=== PATIENT | male | born 1950 | race Caucasian/White ===

== ENCOUNTER 2025-02-13 22:00 | Inpatient (IN) | payer OTHER ==
--- OUTSIDE RECORDS SUMMARY | 2025-02-13 22:04 | XMS REPORT | Continuity of Care Document ---
Author Name Unknown Address [address] [facility]. [address] [place] [address] Organization [facility] [place] Address [address] [facility]. [address] [place] [address] Care Team Providers Care Facilities Maintenance Supervisor Name Role Phone Pcp, Patient Does Not Have A Primary Care Physic zane Jesse Damon Attending Clinician [phone] PHANI ARORA Attending Clinician Unavailable King WALLY, Santi Manriquez Attending Clinician [phone] Dylan Richardson MD Attending Clinician [phone] Jhon Lynn MD Attending Clinician [phone] Payers Payer Name Policy Type Policy Number Effective Date Expirati on Date Source Problems Condition Name Condition Details Condition Category Status Onset Date Resolution Date Last Treatment Date Treating Clinician Comments Source Essential hypertensi on, benign Essential hypertensi on, benign Disease Active 10-15 00:00: 00 [facility] Venous insufficie ncy Venous insufficie ncy Disease Active 2016-05 00:00: 00 [facility] Obesity, Class III, BMI 40-49.9 (morbid obesity) Obesity, Class III, BMI 40-49.9 (morbid obesity) Disease Active 2016-05 00:00: 00 [facility] Venous insufficie ncy Venous insufficie ncy Disease Active 2016-05 00:00: 00 [facility] Obesity, Class III, BMI 40-49.9 (morbid obesity) Obesity, Class III, BMI 40-49.9 (morbid obesity) Disease Active 2016-05 00:00: 00 [facility] Pedal edema Pedal edema Disease Active 2016-05 00:00: 00 [facility] Primary osteoarthr itis of both knees Primary osteoarthr itis of both knees Disease Active 02-19 00:00: 00 [facility] Chronic idiopathic gout of foot, unspecifie d laterality Chronic idiopathic gout of foot, unspecifie d laterality Disease Active 02-19 00:00: 00 [facility] Allergies, Adverse Reactions, Alerts Allergy Name Allergy Type Status Severity Reaction(s) Onset Date Inactive Date Treating Clinician Comments Source Penicill ins Propensi ty to adverse reaction s to drug Active Unknown - See comments 02-19 00:00: 00 [facility] PENICILL INS Drug Class Active High Unknown-Cmnt 02-19 00:00: 00 [facility] Social History Social Habit Start Date Stop Date Quantity Comments Source Tobacco use and exposure 2017-03-03 00:00:00 2017-03-03 00:00:00 Never used [facility] Sex Assigned At 1950 00:00:00 1950 00:00:00 [facility] Smoking Status Start Date Stop Date Source Never smoker [facility] Medications Ordered Medication Name Filled Medication Name Start Date Stop Date Current Medication? Ordering Clinician Indication Dosage Frequency Signature (SIG) Comments Components Source DICLOFENAC 75 mg EC tablet 2020-05 00:00: 00 Yes TAKE 1 TABLET BY MOUTH TWICE DAILY WITH MEALS [facility] DICLOFENAC 75 mg EC tablet 02-03 00:00: 00 Yes [id number] TAKE 1 TABLET BY MOUTH TWICE DAILY WITH MEALS [facility] DICLOFENAC 75 mg EC tablet 12-05 00:00: 00 02-03 00:00 :00 No [id number] TAKE 1 TABLET BY MOUTH TWICE DAILY WITH MEALS [facility] DICLOFENAC 75 mg EC tablet 10-14 00:00: 00 Yes TAKE 1 TABLET BY MOUTH TWICE DAILY WITH MEALS [facility] DICLOFENAC 75 mg EC tablet 08-20 00:00: 00 Yes TAKE 1 TABLET BY MOUTH TWICE DAILY WITH MEALS [facility] DICLOFENAC 75 mg EC tablet 07-24 00:00: 08-20 00:00 :00 No [id number] TAKE 1 TABLET BY MOUTH TWICE DAILY WITH MEALS [facility] DICLOFENAC 75 mg EC tablet 06-19 00:00: 00 07-24 00:00 :00 No TAKE 1 TABLET BY MOUTH TWICE DAILY WITH MEALS [facility] DICLOFENAC 75 mg EC tablet 2018-05 00:00: 00 06-19 00:00 :00 No TAKE 1 TABLET BY MOUTH TWICE DAILY WITH MEALS [facility] LISINOPRIL- HYDROCHLORO THIAZIDE 20-25 mg per tablet 2018-05 00:00: 00 Yes [id number] 1{tbl} TAKE 1 TABLET BY MOUTH DAILY [facility] DICLOFENAC 75 mg EC tablet 01-18 00:00: 00 Yes TAKE 1 TABLET BY MOUTH TWICE DAILY WITH MEALS [facility] DICLOFENAC 75 mg EC tablet 12-19 00:00: 00 Yes TAKE 1 TABLET BY MOUTH TWICE DAILY WITH MEALS [facility] DICLOFENAC 75 mg EC tablet 11-18 00:00: 00 12-18 00:00 :00 No [id number] TAKE 1 TABLET BY MOUTH TWICE DAILY WITH MEALS [facility] DICLOFENAC 75 mg EC tablet 09-22 00:00: 00 Yes TAKE 1 TABLET BY MOUTH TWICE DAILY WITH MEALS [facility] allopurinol 100 mg tablet 08-12 00:00: 00 Yes [id number] 100mg Take 1 tablet by mouth daily. [facility] acetaminoph en (TYLENOL ORAL) 2017-05 14:53: 56 Yes Take by mouth. [facility] acetaminoph en (TYLENOL ORAL) 2017-05 08:53: 56 Yes Take by mouth. [facility] lisinopril- hydrochloro thiazide 20-25 mg per tablet 2017-05 00:00: 00 Yes 1{tbl} Take 1 tablet by mouth daily. [facility] DICLOFENAC 75 mg EC tablet 2017-05 00:00: 00 Yes TAKE 1 TABLET BY MOUTH TWICE DAILY WITH MEALS [facility] DICLOFENAC 75 mg EC tablet 2017-05 00:00: 00 Yes TAKE 1 TABLET BY MOUTH TWICE DAILY WITH MEALS [facility] Docosanol (ABREVA) 10 % Crea 01-21 00:00: 00 Yes [id number] Apply to area(s) 5 (five) times daily. [facility] DICLOFENAC 75 mg EC tablet 11-15 00:00: 00 Yes TAKE 1 TABLET BY MOUTH TWICE DAILY WITH MEALS [facility] Encounters Start Date/Time End Date/Time Encounter Type Admission Type Attending [facility] Care Facility Care Department Encounter ID Source 2021-04-03 00:00:00 2021-04-03 00:00:00 [facility] 1.2.840.114 350.1.13.10 4.2.7.2.[id number] [facility] 2021-01-31 00:00:00 2021-01-31 [facility] 1.2.840.114 350.1.13.10 4.2.7.2.[id number] [facility] 2020-12-05 00:00:00 2020-12-05 00:00[facility] 1.2.840.114 350.1.13.10 4.2.7.2.[id number] [facility] 2020-10-13 00:00:00 2020-10-13 00:00:00 Ant Starkey [facility] Surgical Special chan [place] 1.2.840.114 350.1.13.10 4.2.7.2.[id number] [facility] 2020-08-19 00:00:00 2020-08-19 00:00:00 Refkiana Starkey [facility] Surgical Special [facility] [place] 1.2.840.114 350.1.13.10 4.2.7.2.686 [id number] 2020-08-19 00:00:00 2020-08-19 00:00:00 Refkiana Starkey [facility] 1.2.840.114 350.1.13.10 4.2.7.2.[id number] [facility] 2019-12-02 18:45:00 2019-12-02 18:45:00 Outpatient PHANI SANCHEZ [facility] [id number] [facility] 2019-08-22 00:00:00 2019-08-22 00:00:00 Santi Florence [facility] 1.2.840.114 350.1.13.10 4.2.7.2.686 [id number] 2019-08-22 00:00:00 2019-08-22 00:00:00 Santi Florence [facility] 1.2.840.114 350.1.13.10 4.2.7.2.[id number] [facility] 2019-07-25 00:00:00 2019-07-25 00:00:00 Ant Starkey [facility] [place] 1.2.840.114 350.1.13.10 4.2.7.2.686 [id number] 2019-07-25 00:00:00 2019-07-25 00:00:00 Refill Jesse Starkey [facility] [place] 1.2.840.114 350.1.13.10 4.2.7.2.[id number] [facility] 2019-07-23 00:00:00 2019-07-23 00:00:00 RefDylan Manley [facility] 1.2.840.114 350.1.13.10 4.2.7.2.686 [id number] 2019-07-23 00:00:00 2019-07-23 00:00:00 Refill Jesse Stareky [facility] [place] 1.2.840.114 350.1.13.10 4.2.7.2.686 [id number] 2019-07-23 00:00:00 2019-07-23 00:00:00 Refill Debra [facility] 1.2.840.114 350.1.13.10 4.2.7.2.[id number] [facility] 2019-07-23 00:00:00 2019-07-23 00:00:00 Jesse Antunez [facility] [place] 1.2.840.114 350.1.13.10 4.2.7.2.[id number] [facility] 2019-06-16 00:00:00 2019-06-16 00:00:00 Jhon Manley Shraddha [facility] [place] 1.2.840.114 350.1.13.10 4.2.7.2.686 [id number] 2019-06-16 00:00:00 2019-06-16 00:00:00 Jhon Manley [facility] [place] 1.2.840.114 350.1.13.10 4.2.7.2.[id number] [facility] 2019-01-17 00:00:00 2019-01-17 00:00:00 Ant Starkey [facility] [place] 1.2.840.114 350.1.13.10 4.2.7.2.[id number] [facility] 2019-01-17 00:00:00 2019-01-17 00:00:00 Ant Starkey [facility] [place] 1.2.840.114 350.1.13.10 4.2.7.2.686 [id number] 2018-12-18 00:00:00 2018-12-18 00:00:00 Ant Starkey [facility] [place] 1.2.840.114 350.1.13.10 4.2.7.2.[id number] [facility] 2018-12-18 00:00:00 2018-12-18 00:00:00 Ant Starkey [facility] [place] 1.2.840.114 350.1.13.10 4.2.7.2.686 [id number]
[2025-02-13] MEDS ORDERED: ACETAMINOPHEN 500 MG TAB ONE (22:54)
[2025-02-13] MEDS ORDERED: IBUPROFEN 400 MG TAB ONE (22:54)
[2025-02-13] MEDS ORDERED: NA CHLORIDE 0.9% 1,000 ML ONE (22:55)
[2025-02-13 23:18] LABS: Absolute Lymphocytes (CBC) 0.3 K/uL (0.7-4.9); Hematocrit 41.6 % (39.6-49.0); Hemoglobin 14.1 g/dL (13.6-17.9); MCH 29.6 pg (27.0-35.0); MCHC 33.8 g/dL (32.0-36.0); MCV 87.6 fL (80-100); MPV 8.8 fL (7.6-11.3); Nucleated RBC Absolute Count 0.0 (0-0); Nucleated Red Blood Cells % 0.3 % (0-0); RBC Red Blood Cell Count 4.75 M/uL (4.33-5.43); White Blood Count 11.60 thou/uL (4.3-10.9)
[2025-02-13 23:19] LABS: PT Prothrombin Time 14.1 SECONDS (10-13.0); PTT, Activated Partial Thromb 27.7 SECONDS (27.2-37.4); Protime INR 1.26
[2025-02-13 23:33] LABS: Sqamous Epithelial None Seen /HPF (None Seen); Urine Culture Reflex Order NOT NEEDED; Urine Microscopic Reflex YN ORDER UMIC
[2025-02-13 23:34] LABS: ALT/SGPT 25.0 U/L (16-61); AST/SGOT 22.0 U/L (15-37); Albumin 3.3 g/dL (3.4-5.0); Albumin/Globulin Ratio 0.8 (1.1-1.8); Alkaline Phosphatase 67.0 U/L (45-117); Anion Gap 11.0 mEq/L (5.0-15.0); BUN Blood Urea Nitrogen 23.0 mg/dL (7-18); Globulin 4.2 g/dL (2.3-3.5); Glucose Level 125.0 mg/dL (74-106); NT PRO-BNP 202.0 pg/mL (<125); Potassium 4.0 mEq/L (3.5-5.1)
[2025-02-13 23:34] LABS: Influenza A Ag Negative; Influenza B Ag Negative; SARS-CoV-2 Antigen Rapid Res Negative (Negative)
[2025-02-13 23:38] LABS: Troponin High Sensitivity 64.9 pg/mL (<58.9)
[2025-02-14 00:14] LABS: Blood Morphology Comment NOT SEEN (NOT SEEN); Differential Total Cells Count 100; Segmented Neutrophils 73 % (40-80); Toxic Granulation 1+
--- NOTE | 2025-02-14 00:26 | EDPHYS ---
Physician Documentation [facility] Name: Kevin Salgado Age: 74 yrs Sex: Male : 1950 Arrival Date: 02/13/2025 Time: 22:00 Bed 14 Private MD: ED Physician Manish Camarena HPI: 02/13 22:24 This 74 yrs old Male presents to ER via Ambulatory with complaints of Fever, dr5 Weakness, Leg Pain, Feet Swelling, Congestion. 22:24 Onset: The symptoms/episode began/occurred 2 day(s) ago. Patient is a 74-year-old male dr5 with history of hypertension, enlarged prostate coming in with fever, shortness of breath when ambulating for the past 2 days. Patient denies chest pain, abdominal pain, constipation. Patient reports he started having diarrhea yesterday. Patient reports that he has a pulse ox at home and his oxygen saturation was in the 80s yesterday. Patient reports productive cough with green, yellow sputum.. Historical: - Allergies: 22:26 PENICILLINS; vc1 - Home Meds: 22:26 allopurinol 100 mg Oral tablet daily [Active]; vc1 22:28 lisinopril-hydrochlorothiazide oral [Active]; tramadol 50 mg Oral tablet [Active]; vc1 Flomax 0.4 mg Oral capsule [Active]; acetaminophen 500 mg Oral capsule 2 2-4 cap daily [Active]; magnesium oxide 500 mg Oral capsule [Active]; Vitamin D Oral daily [Active]; biotin 10,000 mcg oral capsule [Active]; - PMHx: 22:26 Neuropathy; right foot drop; vc1 - PSHx: 22:26 None; vc1 - Immunization history:: Adult Immunizations unknown. - Infectious Disease History:: Denies. - Social history:: Smoking status: Patient denies any tobacco usage or history of. ROS: 22:24 Constitutional: as per hpi dr5 Exam: 22:24 Constitutional: This is a well developed, well nourished patient who is awake, alert, dr5 and in no acute distress. Head/Face: Normocephalic, atraumatic. Eyes: Pupils equal round and reactive to light, extra-ocular motions intact. Lids and lashes normal. Conjunctiva and sclera are non-icteric and not injected. Cornea within normal limits. Periorbital areas with no swelling, redness, or edema. Neck: Trachea midline, no thyromegaly or masses palpated, and no cervical lymphadenopathy. Supple, full range of motion without nuchal rigidity, or vertebral point tenderness. No Meningismus. Chest/axilla: Normal chest wall appearance and motion. Nontender with no deformity. No lesions are appreciated. Cardiovascular: Regular rate and rhythm with a normal S1 and S2. Normal PMI, no JVD. No pulse deficits. 2+ bilateral pitting edema noted Respiratory: Lungs have equal breath sounds bilaterally, clear to auscultation. No rales, rhonchi or wheezes noted. Mild increased work of breathing, no retractions or nasal flaring. Abdomen/GI: Soft, non-tender, non-distended Back: No spinal tenderness. No costovertebral tenderness. Full range of motion. Skin: Warm, dry with normal turgor. Normal color with no rashes, no lesions, and no evidence of cellulitis. Patient has bilateral lower extremity swelling with mild redness noted to left lower extremity. MS/ Extremity: Pulses equal, no cyanosis. Neurovascular intact. Full, normal range of motion. Neuro: Awake and alert, GCS 15, oriented to person, place, time, and situation. Cranial nerves II-XII grossly intact. Motor strength 5/5 in all extremities. Sensory grossly intact. Cerebellar exam normal. Normal gait. 02/14 01:45 Skin: Patient has bilateral ulcerations to bottom of feet. No tenderness to palpation. dr5 No discharge from wounds.. Vital Signs: 02/13 22:20 BP 141 / 75; Pulse 123; Resp 28; Temp 99.8; Pulse Ox 93% ; Weight 154.22 kg; Height 6 vc1 ft. 0 in. ; 23:21 BP 124 / 54; Pulse 100; Resp 20; Pulse Ox 97% on 2 lpm NC; kj2 22:20 Body Mass Index 46.11 (154.22 kg, 182.88 cm) vc1 MDM: 22:05 Medical Screening Exam initiated dr5 02/14 00:26 Differential diagnosis: viral Infection, bacterial infection, URI, pneumonia CHF dr5 exacerbation, COVID, Flu, UTI. Data reviewed: vital signs, nurses notes, lab test result(s), CBC, white blood cell count, hemoglobin, hematocrit, platelets, electrolytes, sodium, potassium, chloride, serum bicarbonate, BUN, creatinine, serum glucose, Flu: negative urinalysis, COVID negative, EKG, radiologic studies, CT scan, plain films. Consideration of Admission/Observation Patient was admitted/placed on observation. Management of patient was discussed with the following: Hospitalist: Dr. Jason. I considered the following discharge prescriptions or medication management in the emergency department I discussed and recommended Over The Counter medications, Medications were administered in the Emergency Department. See MAR. Independent interpretation of the following test(s) in the Emergency Department X-Ray: My interpretation is independent interpretation of x-ray reveals vascular congestion. Historians other than the Patient: Spouse/Significant Other: . Care significantly affected by the following chronic conditions: Neuropathy. Care significantly affected by the following Social Determinants of Health: Poor access to healthcare and/or lack of insurance, Poor access to transportation, Problems related to employment. 00:29 Scoring Tools HEART Score: History: ECG: Age: Risk Factors: 1 or 2 risk factors (1), dr5 Troponin: Total Score = 4 PERC Rule for PE Age >/= 50 Yes HR >/= 100 Yes O2 Sat Room Air < 95% Yes Unilateral leg swelling No Hemoptysis No Recent surgery or trauma </= 4 wks ago requiring treatment with general anesthesia No (0 pt) Prior PE or DVT No Hormone use (Oral contraceptives, hormone replacement or estrogenic hormones use in males or female patients No. Counseling: I had a detailed discussion with the patient and/or guardian regarding the historical points, exam findings, and any diagnostic results supporting the discharge/admit diagnosis, the presence of at least one elevated blood pressure reading (>120/80) during this emergency department visit, lab results, radiology results, the need for further work-up and treatment in the hospital. Medication response: Response to treatment: the patient's symptoms have markedly improved after treatment. Special discussion:. ED course: Discussed need for admission and patient and agree. Patient reports he is feeling much better after fluids and ibuprofen and Tylenol.. 02/13 22: Order name: BNP; Complete Time: 23:39 dr5 02/13 22:23 Order name: Blood Culture Adult (2) dr5 02/13 22:23 Order name: CBC with Diff; Complete Time: 00:15 dr5 02/13 22:23 Order name: CMP; Complete Time: 23:39 dr5 02/13 22:23 Order name: Lactate w/ 2H reflex if indic.; Complete Time: 23:33 [facility] 02/13 22:23 Order name: Protime (+inr); Complete Time: 23:21 [facility] 02/13 22:23 Order name: Ptt, Activated; Complete Time: 23:21 [facility] 02/13 22:23 Order name: Troponin HS; Complete Time: 23:39 [facility] 02/13 22:23 Order name: COVID-19 Ag + Flu A+B Ag; Complete Time: 23:34 [facility] 02/13 22:26 Order name: UA Rfx Arley Cult if indicated; Complete Time: 23:33 [facility] 02/13 23:25 Order name: Glucose, Ancillary Testing; Complete Time: 23:26 EDMS 02/13 23:28 Order name: Manual Differential; Complete Time: 00:15 EDMS 02/14 03:28 Order name: CBC with Automated Diff EDMS 02/14 03:28 Order name: CBC with Automated Diff EDMS 02/14 03:28 Order name: Comprehensive Metabolic Panel EDMS 02/14 03:28 Order name: Comprehensive Metabolic Panel EDMS 02/14 03:28 Order name: Troponin High Sensitivity EDMS 02/14 03:28 Order name: Troponin High Sensitivity; Complete Time: 06:18 EDMS 02/14 03:28 Order name: Troponin High Sensitivity EDMS 02/14 03:28 Order name: Troponin High Sensitivity EDMS 02/14 04:14 Order name: Lactate w/ 2H reflex if indic. vc1 02/14 04:51 Order name: Lactate w/ 2H reflex if indic.; Complete Time: 06:18 EDMS 02/14 11:46 Order name: CBC with Automated Diff EDMS 02/14 12:00 Order name: Basic Metabolic Panel EDMS 02/14 12:00 Order name: Phosphorus EDMS 02/14 12:00 Order name: Magnesium EDMS 02/13 22:23 Order name: Chest Single View XRAY [facility] 02/14 00:22 Order name: CT Chest For PE Angio [facility] 02/13 22:23 Order name: Accucheck; Complete Time: 23:01 [facility] 02/13 22:23 Order name: Cardiac monitoring; Complete Time: 22:49 [facility] 02/13 22:23 Order name: EKG - Nurse/Tech; Complete Time: 23:01 [facility] 02/13 22:23 Order name: IV Saline Lock - Large Bore; Complete Time: 22:49 dr5 02/13 22:23 Order name: Labs collected and sent; Complete Time: :49 dr5 02/13 22: Order name: O2 Per Protocol; Complete Time: :49 dr5 02/13 22: Order name: O2 Sat Monitoring; Complete Time: 22:49 dr5 02/13 22:23 Order name: Vital Signs; Complete Time: 22:50 dr5 EC/23 23:01 Rate is 114 beats/min. Rhythm is regular. QRS [place] is Normal. SC interval is normal at dr5 208 msec. QRS interval is normal at 80 msec. QT interval is normal at 288 msec. Clinical impression: Sinus tachycardia. Administered Medications: 23: Drug: NS 0.9% IV 1000 ml IV at 1000 ml once; to be given as a bolus over 60 minutes cp4 Route: IV; Rate: 1000 ml; Site: right antecubital; 02/14 00:41 Follow up: Response: No adverse reaction cp4 00:42 Follow up: IV Status: Completed infusion cp4 02/13 23:01 Drug: Acetaminophen PO 1000 mg PO once Route: PO; cp4 02/14 00:42 Follow up: Response: No adverse reaction; Pain is decreased cp4 02/13 23:01 Drug: Ibuprofen PO 800 mg PO once Route: PO; cp4 02/14 00:42 Follow up: Response: No adverse reaction; Pain is decreased cp4 00:41 Drug: Rocephin IV 2 grams IV at per protocol once; Given slow IV push per pharmarcy cp4 instructions Route: IV; Rate: per protocol; Site: right antecubital; 00:42 Follow up: Response: No adverse reaction; IV Status: Completed infusion cp4 00:41 Drug: Furosemide IVP 40 mg IVP once; give over 2 minutes Route: IVP; Site: right cp4 antecubital; 02:18 Follow up: Response: No adverse reaction kd4 00:41 Drug: morphine IVP or IV 4 mg IVP once over 4 mins Route: IVP; Infused Over: 4 mins; cp4 Site: right antecubital; 02:18 Follow up: Response: No adverse reaction kd4 00:41 Drug: Ondansetron IVP 4 mg IVP once; over 2 minutes Route: IVP; Site: right antecubital;cp4 02:18 Follow up: Response: No adverse reaction kd4 Disposition Summary: 02/14/25 00:25 Hospitalization Ordered Notes: Hospitalization Status: Inpatient Admission dr5 Provider: Zelalem Jason Condition: Stable dr5 Problem: new dr5 Symptoms: have worsened dr5 Bed/Room Type: Standard dr5 Location: Telemetry/MedSurg (Inpatient)(02/14/25 16:58) ts3 Room Assignment: 215(02/14/25 16:58) ts3 Diagnosis - Fever, unspecified dr5 - Shortness of breath dr5 - Edema, unspecified dr5 Forms: - Medication Reconciliation Form dr5 - SBAR form dr5 - Leadership Thank You Letter dr5 Signatures: Dispatcher [employer] EDMS Manish Camarena MD MD sp3 Annie Scales RN RN vc1 Keyanna López rv1 Viki Martinez cp4 Jose Alberto Mariee, MARKETING DIRECTOR ASSISTED LIVING-C MARKETING DIRECTOR ASSISTED LIVING-Cdr5 Nancie Boyle ts3 Albert Hudson RN kd4 Corrections: (The following items were deleted from the chart) 00:51 00:25 Telemetry/MedSurg (Inpatient) dr5 rv1 00:51 00:25 dr5 rv1 01:45 02/13 22:24 Constitutional: This is a well developed, well nourished patient who is dr5 awake, alert, and in no acute distress. Head/Face: Normocephalic, atraumatic. Eyes: Pupils equal round and reactive to light, extra-ocular motions intact. Lids and lashes normal. Conjunctiva and sclera are non-icteric and not injected. Cornea within normal limits. Periorbital areas with no swelling, redness, or edema. Neck: Trachea midline, no thyromegaly or masses palpated, and no cervical lymphadenopathy. Supple, full range of motion without nuchal rigidity, or vertebral point tenderness. No Meningismus. Chest/axilla: Normal chest wall appearance and motion. Nontender with no deformity. No lesions are appreciated. Cardiovascular: Regular rate and rhythm with a normal S1 and S2. Normal PMI, no JVD. No pulse deficits. 2+ bilateral pitting edema noted Respiratory: Lungs have equal breath sounds bilaterally, clear to auscultation. No rales, rhonchi or wheezes noted. Mild increased work of breathing, no retractions or nasal flaring. Abdomen/GI: Soft, non-tender, non-distended Back: No spinal tenderness. No costovertebral tenderness. Full range of motion. Skin: Warm, dry with normal turgor. Normal color with no rashes, no lesions, and no evidence of cellulitis. Patient has bilateral lower extremity swelling with mild redness noted to left lower extremity. MS/ Extremity: Pulses equal, no cyanosis. Neurovascular intact. Full, normal range of motion. Neuro: Awake and alert, GCS 15, oriented to person, place, time, and situation. Cranial nerves II-XII grossly intact. Motor strength 5/5 in all extremities. Sensory grossly intact. Cerebellar exam normal. Normal gait. dr5 02/14 16:58 00:51 [facility] ER HOLD rv1 ts3 16:58 00:51 ERHOLD- rv1 ts3
--- NOTE | 2025-02-14 00:26 | ER ---
Nurse's Notes [facility] Name: Kevin Salgado Age: 74 yrs Sex: Male : 1950 Arrival Date: 02/13/2025 Time: 22:00 Bed 14 Private MD: Diagnosis: Fever, unspecified;Shortness of breath;Edema, unspecified Presentation: 02/13 22:20 Chief complaint: Patient states: bilateral leg swelling, started running a fever Wednesday vc1 night. Coronavirus screen: Client denies travel out of the [place] in the last 14 days. At this time, the client does not indicate any symptoms associated with coronavirus-19. Ebola Screen: Patient negative for fever greater than or equal to 101.5 degrees Fahrenheit, and additional compatible Ebola Virus Disease symptoms Patient denies exposure to infectious person. Initial Sepsis Screen: Does the patient meet any 2 criteria? No. Patient's initial sepsis screen is negative. Does the patient have a suspected source of infection? No. Patient's initial sepsis screen is negative. Risk Assessment: Do you want to hurt yourself or someone else? Patient reports no desire to harm self or others. Onset of symptoms was February 11, 2025. 22:20 Method Of Arrival: Wheelchair vc1 22:20 Acuity: TERRA 3 vc1 Triage Assessment: 22:32 General: Appears in no apparent distress. uncomfortable, obese, Behavior is calm, vc1 cooperative, appropriate for age. General: Reports chills for 12-24 hours, fever for 12-24 hours, feeling ill for 12-24 hours. Pain: Complains of pain in right leg and left leg Pain does not radiate. EENT: No deficits noted. No signs and/or symptoms were reported regarding the EENT system. Neuro: Level of Consciousness is awake, alert, obeys commands, Oriented to person, place, time, situation, Appropriate for age. Cardiovascular: Heart tones S1 S2 present Capillary refill < 3 seconds Patient's skin is warm and dry. Cardiovascular: Edema is 4+ to left midcalf, left ankle, right midcalf and right ankle pitting to left midcalf, left ankle, right midcalf and right ankle. Respiratory: Airway is patent Respiratory effort is even, unlabored, Respiratory pattern is symmetrical, tachypnea. GI: Abdomen is non-distended, obese. : No deficits noted. No signs and/or symptoms were reported regarding the genitourinary system. Derm: Skin is intact, with poor turgor Skin is dry. Musculoskeletal: No signs and/or symptoms reported regarding the musculoskeletal system. Historical: - Allergies: 22: PENICILLINS; vc1 - Home Meds: 22: allopurinol 100 mg Oral tablet daily [Active]; vc1 22:28 lisinopril-hydrochlorothiazide oral [Active]; tramadol 50 mg Oral tablet [Active]; vc1 Flomax 0.4 mg Oral capsule [Active]; acetaminophen 500 mg Oral capsule 2 2-4 cap daily [Active]; magnesium oxide 500 mg Oral capsule [Active]; Vitamin D Oral daily [Active]; biotin 10,000 mcg oral capsule [Active]; - PMHx: 22: Neuropathy; right foot drop; vc1 - PSHx: 22: None; vc1 - Immunization history:: Adult Immunizations unknown. - Infectious Disease History:: Denies. - Social history:: Smoking status: Patient denies any tobacco usage or history of. Screenin:31 [facility] ED Fall Risk Assessment (Adult) History of falling in the last 3 months, vc1 including since admission No falls in past 3 months (0 pts) Confusion or Disorientation No (0 pts) Intoxicated or Sedated No (0 pts) Impaired Gait Yes (1 pt) Mobility Assist Device Used Yes (1 pt) Altered Elimination Yes (1 pt) Score/Fall Risk Level 3 or more points = High Risk Oriented to surroundings, Maintained a safe environment, Educated pt \T\ family on fall prevention, incl call for assistance when getting out of bed, Assessed \T\ reinforced patient's understanding of fall precautions, Hourly rounding (assess needs \T\ fall precautionary measures) done, Implemented a Fall Risk Plan of Care, Apply high fall risk patient identification: yellow non skid footwear/ fall signage, Remained w/in arm's length of patient and in sight while toileting, Offered frequent toileting (1:1 observation), Remained with patient while ambulating. Abuse screen: Denies threats or abuse. Nutritional screening: No deficits noted. Tuberculosis screening: No symptoms or risk factors identified. Assessment: 22:46 General: Appears in no apparent distress. uncomfortable, Behavior is calm, cooperative, cp4 appropriate for age. 22:46 Pain: Denies pain. Neuro: Level of Consciousness is awake, alert, obeys commands, cp4 Oriented to person, place, time, situation. Cardiovascular: Patient's skin is warm and dry. Respiratory: Airway is patent Respiratory effort is even, unlabored. GI: No signs and/or symptoms were reported involving the gastrointestinal system. : No signs and/or symptoms were reported regarding the genitourinary system. EENT: No signs and/or symptoms were reported regarding the EENT system. Derm: No signs and/or symptoms reported regarding the dermatologic system. Musculoskeletal: Reports swelling in bilateral leg. 23:15 Reassessment: 127bgl per POC. kj2 23:19 Reassessment: Patient appears in no apparent distress at this time. kj2 23:21 Reassessment: Patient appears in no apparent distress at this time. Patient and/or kj2 family updated on plan of care and expected duration. Pain level reassessed. Patient is alert, oriented x 3, equal unlabored respirations, skin warm/dry/pink. 02/14 01:58 General: Received patient from trauma. kd4 Vital Signs: 02/13 22:20 BP 141 / 75; Pulse 123; Resp 28; Temp 99.8; Pulse Ox 93% ; Weight 154.22 kg; Height 6 vc1 ft. 0 in. ; 23:21 BP 124 / 54; Pulse 100; Resp 20; Pulse Ox 97% on 2 lpm NC; kj2 22:20 Body Mass Index 46.11 (154.22 kg, 182.88 cm) vc1 ED Course: 22:05 Patient arrived in ED. gm2 22:05 Jose Alberto Mariee FNP-C [facility]. dr5 22:05 Manish Camarena MD is Attending Physician. dr5 22:26 Triage completed. vc1 22:31 Arm band placed on right wrist. vc1 22:31 Patient has correct armband on for positive identification. Bed in low position. Call vc1 light in reach. Provided Education on: Plan of care. Pulse ox on. NIBP on. 22:45 Initial lab(s) drawn, by me, sent to lab. First set of blood cultures drawn Second set cp4 of blood cultures drawn COVID swab sent to lab. Flu and/or RSV swab sent to lab. 22:46 No provider procedures requiring assistance completed. Inserted saline lock: 20 gauge cp4 in right antecubital area, using aseptic technique. Blood collected. Flushed with 10 mL NS. 22:52 Chest Single View XRAY In Process Unspecified. EDMS 23:31 Skylar Bernabe, RN is Primary Nurse. mf3 23:38 Notified Nurse Practitioner and/or Physician Gasoline Engine Assembler of a critical lab result(s), vc1 Troponin 64.9. 02/14 00:24 Zelalem Jason MD is Hospitalizing Provider. dr5 01:19 CT Chest For PE Angio In Process Unspecified. EDMS 19:36 Patient admitted, IV remains in place. cp4 Administered Medications: 02/13 23:01 Drug: NS 0.9% IV 1000 ml IV at 1000 ml once; to be given as a bolus over 60 minutes cp4 Route: IV; Rate: 1000 ml; Site: right antecubital; 02/14 00:41 Follow up: Response: No adverse reaction cp4 00:42 Follow up: IV Status: Completed infusion cp4 02/13 23:01 Drug: Acetaminophen PO 1000 mg PO once Route: PO; cp4 02/14 00:42 Follow up: Response: No adverse reaction; Pain is decreased cp4 02/13 23:01 Drug: Ibuprofen PO 800 mg PO once Route: PO; cp4 02/14 00:42 Follow up: Response: No adverse reaction; Pain is decreased cp4 00:41 Drug: Rocephin IV 2 grams IV at per protocol once; Given slow IV push per pharmarcy cp4 instructions Route: IV; Rate: per protocol; Site: right antecubital; 00:42 Follow up: Response: No adverse reaction; IV Status: Completed infusion cp4 00:41 Drug: Furosemide IVP 40 mg IVP once; give over 2 minutes Route: IVP; Site: right cp4 antecubital; 02:18 Follow up: Response: No adverse reaction kd4 00:41 Drug: morphine IVP or IV 4 mg IVP once over 4 mins Route: IVP; Infused Over: 4 mins; cp4 Site: right antecubital; 02:18 Follow up: Response: No adverse reaction kd4 00:41 Drug: Ondansetron IVP 4 mg IVP once; over 2 minutes Route: IVP; Site: right antecubital;cp4 02:18 Follow up: Response: No adverse reaction kd4 Medication: 02/13 22:46 VIS not applicable for this client. cp4 Output: 02/14 01:58 Urine: 300ml (Voided); Total: 300ml. kd4 Outcome: 00:25 Decision to Hospitalize by Provider. dr5 19:35 Admitted to Med/surg cp4 19:35 Admitted to Med/surg accompanied by tech, via stretcher, with chart, 19:35 Condition: stable 19:35 Instructed on the need for admit, 19:36 Patient left the ED. cp4 Signatures: Dispatcher [employer] EDMS Annie Scales RN RN 1 Viki Martinez cp4 Belem Reddy 2 Albert Hudson RN RN kd4 Idalia Rutherford, RN RN kj2 Jose Alberto Mariee, TAKE DOWN INSPECTOR-C TAKE DOWN INSPECTOR-Cdr5 Skylar Bernabe RN RN mf3
[2025-02-14] MEDS ORDERED: ONDANSETRON 4 MG/2 ML VIAL ONE (00:32)
[2025-02-14] MEDS ORDERED: CEFTRIAXONE 2000 MG/VIAL ONE (00:32)
[2025-02-14] MEDS ORDERED: FUROSEMIDE 40 MG/4 ML VIAL ONE (00:32)
[2025-02-14] MEDS ORDERED: MORPHINE 4 MG/ML SYR ONE (00:33)
--- NOTE | 2025-02-14 02:18 | RAD REPORT ---
CLINICAL HISTORY: Shortness of breath. COMPARISON: XR Chest 02/13/2025. TECHNIQUE: CT CHEST ANGIOGRAPHY WITH IV CONTRAST on 02/14/2025 12:22 AM CDT. MIPS reconstructions were generated. This exam was performed according to our departmental dose-optimization program, which includes autom ated exposure control, adjustment of the mA and/or kV according to patient size and/or use of iterative reconstruction technique. MIP images were generated. FINDINGS: Thoracic aorta is normal in course and caliber without aneurysm or dissection. Pulmonary arteries are adequately opacified without acute or chronic filling defects. The heart is normal in size. There is no pericardial effusion. Intrathoracic lymph nodes are not enla rged. There is no pleural effusion, pleural thickening or pneumothorax. Central airways are patent. Lungs a re clear with no consolidation, mass or interstitial lung disease. There are no acute abnormalities within the limited images of the upper abdomen. There are no acute osseous findings. No suspicious bony lesions. IMPRESSION: No aortic dissection or aneurysm. No pulmonary embolus. No pneumonia. Electronically signed by: Lon Lucas MD 02/14/2025 02:08 AM CDT RP Due to temporary technical issues with the PACS/mmCHANNEL reporting system, reports are being francia d by the in-house radiologist without review as a courtesy to ensure prompt reporting the interpreting radiologist is fully responsible for the content of the report. Transcribed Date/Time: 02/14/2025 2:18 AM
[2025-02-14] MEDS ORDERED: ONDANSETRON 4 MG/2 ML VIAL IV PRN (03:23)
--- NOTE | 2025-02-14 03:27 | P.HP ---
Certification for Inpatient Patient admitted to: Inpatient With expected LOS: >2 Midnights Practitioner: I am a practitioner with admitting privileges, knowledge of patient current condition, hospital course, and medical plan of care. Services: Services provided to patient in accordance with Admission requirements found in Title 42 Section 412.3 of the Code of Federal Regulations Patient History Date of Service: 02/14/25 Reason for admission: NSTEMI History of Present Illness: 74 yrs old Male with past medical history of hypertension, gout, neuropathy , right foot drop, enlarged prostate who came to ER with fever body pain congestion which started 2 days ago worse and was brought to ER. Patient denies any chest pain or abdominal pain. Had some diarrhea yesterday. He also has some cough greenish-yellowish sputum. Denies that hypoxic with saturation of 80s. He started feeling short of breath especially upon ambulation for the last 2 days. He had a stress test earlier this year which was normal as per the patient. He also has a history of CKD stage II Patient was assessed in the ER and is admitted for further management. Allergies Penicillins Allergy (Verified 02/14/25 04:02) Itching/Hives/Rash Home medications list reviewed: Yes - Past Medical/Surgical History Past Medical History: Reviewed- Non-Contributory -: HTN,BPH Past Surgical History: Reviewed- Non-Contributory - Social History Smoking Status: Never smoker Review of Systems 10-point ROS is otherwise unremarkable Physical Examination - Vital Signs Temperature: 98.1 F Blood Pressure: 116/55 Pulse: 75 Respirations: 18 Pulse Ox (%): 94 - Physical Exam General: Alert, Oriented x3, Mild distress, Obese HEENT: Atraumatic, Normocephalic Neck: Supple Respiratory: Clear to auscultation bilaterally, Normal air movement Cardiovascular: Regular rate/rhythm, Normal S1 S2 Capillary refill: <2 Seconds Gastrointestinal: Soft and benign Musculoskeletal: No clubbing, Erythema, Tenderness, Warmth Integumentary: No rashes, Erythema Neurological: Other (Alert awake nonfocal) Lymphatics: No axilla or inguinal lymphadenopathy - Studies Laboratory Data (last 24 hrs) 02/13/25 02/13/25 02/13/25 22:40 22:40 22:40 WBC 11.60 H Hgb 14.1 Hct 41.6 Plt Count 209 PT 14.1 H INR 1.26 APTT 27.7 Sodium 133 L Potassium 4.0 BUN 23 H Creatinine 1.68 H Glucose 125 H Total Bilirubin 0.6 AST 22 ALT 25 Alkaline Phosphatase 67 Assessment and Plan - Plan NSTEMI Will trend cardiac enzymes Will monitor telemetry Started on aspirin and statin Patient denies any chest pain Will get an echocardiogram Cardiology consult Left lower extremity cellulitis Started on antibiotics Will obtain cultures Change antibiotic as per sensitivity Pain control Hyponatremia CKD stage II Monitor renal parameters Electrolytes monitor and replace accordingly GI/DVT prophylaxis Advanced directive full code Discharge Plan: Home Plan to discharge in: 48 Hours - Advance Directives Does patient have a Living Will: No Does patient have a Durable POA for Healthcare: No - Code Status/Comfort Care Code Status: Full Code Time Spent Managing Pts Care (In Minutes): 49
[2025-02-14 04:59] VITALS: BMI 46.0
[2025-02-14] MEDS: NA CHLORIDE 0.9% 500 ML IV ONE (05:59)
[2025-02-14] MEDS: ALBUMIN HUMAN 25% 100 ML IV ONE (05:59)
--- NOTE | 2025-02-14 06:01 | RAD REPORT ---
CLINICAL HISTORY: SOB. COMPARISON: None. TECHNIQUE: XR CHEST 1 VIEW 02/13/2025 10:23 PM CDT FINDINGS: The heart is enlarged. There is mild pulmonary vascular congestion. There is no pleural effusion. The re is no pneumothorax. There are no acute osseous findings. IMPRESSION: Cardiomegaly with mild pulmonary vascular congestion. Electronically signed by: Lon Lucas MD 02/13/2025 11:33 PM CDT RP Due to temporary technical issues with the PACS/[employer] reporting system, reports are being francia d by the in-house radiologist without review as a courtesy to ensure prompt reporting the interpreting radiologist is fully responsible for the content of the report. Transcribed Date/Time: 02/14/2025 6:01 AM
[2025-02-14] MEDS: ASPIRIN EC 81 MG TAB PO SCH (09:00)
[2025-02-14] MEDS: ENOXAPARIN 40 MG/0.4 ML SQ SCH (09:00)
[2025-02-14] MEDS ORDERED: ASPIRIN EC 81 MG TAB PO ONE (10:54)
[2025-02-14] MEDS ORDERED: ENOXAPARIN 40 MG/0.4 ML SQ ONE (10:54)
[2025-02-14] MEDS ORDERED: AZTREONAM 1 GM/VIAL ONE (11:09)
[2025-02-14] MEDS ORDERED: NA CHLORIDE 0.9% 100 ML ONE (11:10)
[2025-02-14] MEDS: AZTREONAM 1 GM in NA CHLORIDE 0.9% 100 ML IV SCH (11:38)
[2025-02-14 11:44] LABS: Absolute Lymphocytes (CBC) 0.6 K/uL (0.7-4.9); Hematocrit 39.2 % (39.6-49.0); Hemoglobin 13.3 g/dL (13.6-17.9); MCH 29.7 pg (27.0-35.0); MCHC 33.9 g/dL (32.0-36.0); MCV 87.7 fL (80-100); MPV 8.6 fL (7.6-11.3); Nucleated RBC Absolute Count 0.0 (0-0); Nucleated Red Blood Cells % 0.1 % (0-0); RBC Red Blood Cell Count 4.47 M/uL (4.33-5.43); White Blood Count 13.40 thou/uL (4.3-10.9)
[2025-02-14 12:00] LABS: Anion Gap 8.9 mEq/L (5.0-15.0); BUN Blood Urea Nitrogen 28.0 mg/dL (7-18); Glucose Level 116.0 mg/dL (74-106); Magnesium 2.0 mg/dL (1.6-2.4); Potassium 3.9 mEq/L (3.5-5.1)
--- NOTE | 2025-02-14 12:15 | P.CNS ---
Date of Consult: 02/14/25 Chief Complaint: NSTEMI History of Present Illness: Patient presented with generlaized body ache, fever and feeling weak, denies chest pain, no palpitations, no syncope, report bilateral lower extremities swelling and chronic DOBBINS, also report cough with sputum production. Allergies Penicillins Allergy (Verified 02/14/25 04:02) Itching/Hives/Rash Home medications list reviewed: Yes - Past Medical/Surgical History -: HTN,BPH Review of Systems 10-point ROS is otherwise unremarkable Physical Examination Temp Pulse Resp BP Pulse Ox 98.1 F 64 20 120/61 95 02/14/25 08:00 02/14/25 10:00 02/14/25 10:00 02/14/25 10:00 02/14/25 10:00 General: Alert, In no apparent distress HEENT: Atraumatic, PERRLA, Mucous membr. moist/pink, EOMI, Sclerae nonicteric Neck: Supple, 2+ carotid pulse no bruit, No LAD, Without JVD or thyroid abnormality Respiratory: Clear to auscultation bilaterally, Normal air movement Cardiovascular: Regular rate/rhythm, Normal S1 S2 Gastrointestinal: Normal bowel sounds, No tenderness Musculoskeletal: No tenderness Integumentary: No rashes Neurological: Normal gait, Normal speech, Normal tone, Normal affect Lymphatics: No axilla or inguinal lymphadenopathy Laboratory Data (last 24 hrs) 02/13/25 02/13/25 02/13/25 22:40 22:40 22:40 WBC 11.60 H Hgb 14.1 Hct 41.6 Plt Count 209 PT 14.1 H INR 1.26 APTT 27.7 Sodium 133 L Potassium 4.0 BUN 23 H Creatinine 1.68 H Glucose 125 H Total Bilirubin 0.6 AST 22 ALT 25 Alkaline Phosphatase 67 - Problems (1) NSTEMI (non-ST elevated myocardial infarction) Current Visit: Yes Status: Acute Plan: Patient with mild leak in troponin that is down trending patient had a cardiac PET done recently that shown no reversible ischemia but reduced global flow reserve. patient is chest pain free with no significant EKG changes and his troponin are mild elevated and down trending, this is most likely type 2 IA from possible PNA/Cellulitis continue ASA 81 mg daily continue Lipitor 40 mg daily No further cardiac work up needed. (2) Acute on chronic diastolic heart failure Current Visit: Yes Status: Acute Plan: would recommend diuresing patient with lasix 40 mg IV BID when he is inpatient with monitoring his kidney function then switch to lasix 40 mg daily on discharge
[2025-02-14] MEDS: ACETAMINOPHEN 325 MG TABLET PO PRN (20:21)
[2025-02-14] MEDS: ATORVASTATIN 40 MG TAB PO SCH (21:00)
[2025-02-15 05:54] LABS: Absolute Lymphocytes (CBC) 1.3 K/uL (0.7-4.9); Hematocrit 40.4 % (39.6-49.0); Hemoglobin 13.6 g/dL (13.6-17.9); MCH 29.5 pg (27.0-35.0); MCHC 33.8 g/dL (32.0-36.0); MCV 87.2 fL (80-100); MPV 9.5 fL (7.6-11.3); Nucleated RBC Absolute Count 0.0 (0-0); Nucleated Red Blood Cells % 0.2 % (0-0); RBC Red Blood Cell Count 4.63 M/uL (4.33-5.43); White Blood Count 9.10 thou/uL (4.3-10.9)
[2025-02-15 06:07] LABS: ALT/SGPT 42.0 U/L (16-61); AST/SGOT 57.0 U/L (15-37); Albumin 3.0 g/dL (3.4-5.0); Albumin/Globulin Ratio 0.7 (1.1-1.8); Alkaline Phosphatase 58.0 U/L (45-117); Anion Gap 9.8 mEq/L (5.0-15.0); BUN Blood Urea Nitrogen 27.0 mg/dL (7-18); Globulin 4.2 g/dL (2.3-3.5); Glucose Level 104.0 mg/dL (74-106); Potassium 3.8 mEq/L (3.5-5.1)
[2025-02-15] MEDS ORDERED: TRAMADOL HCL 50 MG TAB PO PRN (07:00)
[2025-02-15] MEDS: POTASSIUM CL SA 10 MEQ TAB PO ONE (08:52)
[2025-02-15] MEDS: TAMSULOSIN 0.4 MG SR CAP PO SCH (08:52)
[2025-02-15] MEDS: MORPHINE 2 MG/ML SYR IV PRN (09:00)
[2025-02-15] MEDS: FUROSEMIDE 40 MG/4 ML VIAL IV SCH (09:00)
--- NOTE | 2025-02-15 10:24 | P.PN ---
Subjective Date of Service: 02/15/25 Chief Complaint: NSTEMI Subjective: Improving (Patient has group B strep bacteremia.) Physical Examination - Vital Signs Temperature: 98.9 F Blood Pressure: 128/58 Pulse: 75 Respirations: 20 Pulse Ox (%): 95 - Physical Exam General: Alert, In no apparent distress, Cooperative, Obese (Morbidly obese) HEENT: Atraumatic, Normocephalic Neck: Supple Respiratory: Clear to auscultation bilaterally, Normal air movement Cardiovascular: Normal pulses, Regular rate/rhythm, Normal S1 S2, No murmurs, Edema Neurological: Normal speech - Studies Microbiology Data (last 24 hrs): 02/13/25 22:40 Blood - Blood Gram Stain - Final Assessment And Plan - Plan Assessment Patient is a 74-year-old male with known history of morbid obesity, gout arthritis. He presented to the hospital for evaluation of fever, chills and cough. Workup in the ER revealed right lower extremity cellulitis. His blood cultures yielded group B strep bacteremia. Patient is also being treated for acute on chronic CHF exacerbation. He has evidence of bilateral lower extremity edema. Sepsis Right lower extremity cellulitis Group B strep bacteremia Acute on chronic CHF exacerbation Elevated troponinmost likely demand ischemia from sepsis Gout arthritis CKD stage III Acute lower extremity pain Morbid obesity Plan: Will add IV clindamycin for dual management of strep/staph coverage for cellulitis Discontinue aztreonam Repeat blood culture today Obtain a 2D echo IV diuresis. IV Lasix 40 mg twice daily Monitor ins and out Venous Doppler ultrasound to rule out DVT CPK due to muscle pain Check uric acid Avoid nephrotoxins Multimodal pain regimen Continue routine home medications
[2025-02-15] MEDS: CLINDAMYCIN 900MG/D5W 900 MG/50 ML IVPB IV SCH (10:58)
[2025-02-15 11:13] LABS: Uric Acid 6.3 mg/dL (3.5-7.2)
--- NOTE | 2025-02-15 11:37 | P.PN ---
Subjective Date of Service: 02/15/25 Chief Complaint: NSTEMI Subjective: No new changes, No C/O voiced, Tolerating diet, Ambulating, Improving Review of Systems 10-point ROS is otherwise unremarkable Physical Examination - Vital Signs Temperature: 98.9 F Blood Pressure: 128/58 Pulse: 75 Respirations: 20 Pulse Ox (%): 95 - Physical Exam General: Alert, In no apparent distress HEENT: Atraumatic, PERRLA, EOMI Neck: Supple, JVD not distended Respiratory: Clear to auscultation bilaterally, Normal air movement Cardiovascular: Regular rate/rhythm, Normal S1 S2 Gastrointestinal: Normal bowel sounds, No tenderness Musculoskeletal: No tenderness Integumentary: No rashes Neurological: Normal speech, Normal tone, Normal affect Lymphatics: No axilla or inguinal lymphadenopathy - Studies Microbiology Data (last 24 hrs): 02/13/25 22:40 Blood - Blood Gram Stain - Final Medications List Reviewed: Yes Assessment And Plan - Current Problems (Diagnosis) (1) NSTEMI (non-ST elevated myocardial infarction) Current Visit: Yes Status: Acute Plan: Patient with mild leak in troponin that is down trending patient had a cardiac PET done recently that shown no reversible ischemia but reduced global flow reserve. patient is chest pain free with no significant EKG changes and his troponin are mild elevated and down trending, this is most likely type 2 IA from possible PNA/Cellulitis continue ASA 81 mg daily continue Lipitor 40 mg daily No further cardiac work up needed. (2) Acute on chronic diastolic heart failure Current Visit: Yes Status: Acute Plan: would recommend diuresing patient with lasix 40 mg IV BID when he is inpatient with monitoring his kidney function then switch to lasix 40 mg daily on discharge with resuming his lisinopril/hctz Cardiology will sign off, please call with any questions
--- NOTE | 2025-02-15 20:16 | RAD REPORT ---
EXAMINATION: US BILATERAL LOWER EXTREMITY VENOUS DOPPLER CLINICAL INDICATION: Bilateral lower extremity pain TECHNIQUE: Complete bilateral duplex sonography of the BILATERAL lower extremity veins was performed. The examination included compression for vein patency, color Doppler imaging and flow augmentation in response to distal compression of the distal external iliac, common femoral, femoral, popliteal, t ibial, and great and small saphenous veins. COMPARISON: No prior exam. FINDINGS: Duplex sonography testing of the veins of the BILATERAL lower extremity was performed. There is throm bus suspected in the left posterior tibial vein. No additional areas of DVT seen. 7 cm Starkey's cyst popliteal fossa on the left. IMPRESSION: Mild thrombus noted left posterior tibial vein. No additional DVT seen. 7 cm Starkey's cyst on the left.
[2025-02-15] MEDS: JUVEN PACKET PO SCH (20:22)
[2025-02-15] MEDS: HYDROCODONE/APAP 5/325 MG TAB PO PRN (23:43)
[2025-02-16 07:30] LABS: Anion Gap 9.9 mEq/L (5.0-15.0); BUN Blood Urea Nitrogen 35.0 mg/dL (7-18); Glucose Level 104.0 mg/dL (74-106); Potassium 3.9 mEq/L (3.5-5.1)
--- NOTE | 2025-02-16 08:59 | P.PN ---
Subjective Date of Service: 02/16/25 Chief Complaint: NSTEMI Subjective: Improving (Feeling better overall but still has persistent RLE redness. Will give a trial of IV solumedrol) Physical Examination - Vital Signs Temperature: 98.0 F Blood Pressure: 117/55 Pulse: 68 Respirations: 16 Pulse Ox (%): 95 - Physical Exam General: Alert, In no apparent distress, Cooperative, Obese Respiratory: Other (breathing is not laboured) Cardiovascular: No edema Integumentary: No significant lesion, Erythema, Warmth Neurological: Normal speech - Studies Microbiology Data (last 24 hrs): 02/13/25 22:40 Blood - Blood Anaerobic Blood Culture - Final Streptococcus Agalactiae Grp B 02/13/25 22:40 Blood - Blood Gram Stain - Final 02/13/25 22:45 Blood - Blood Blood Culture Gram Stain - Final Medications List Reviewed: Yes Assessment And Plan - Plan Assessment Patient is a 74-year-old male with known history of morbid obesity, gout arthritis. He presented to the hospital for evaluation of fever, chills and cough. Workup in the ER revealed right lower extremity cellulitis. His blood cultures yielded group B strep bacteremia. Patient is also being treated for acute on chronic CHF exacerbation. He has evidence of bilateral lower extremity edema. Sepsis Right lower extremity cellulitis Group B strep bacteremia Acute on chronic CHF exacerbation L posterior tibial vein thrombus - mild Elevated troponinmost likely demand ischemia from sepsis Gout arthritis CKD stage III Acute lower extremity pain Morbid obesity Plan: IV solumedrol added to reduce inflammation Continue IV Clindamycin for staph/strep coverage Repeat blood cx negative to date Net (-) ON IV Lasix, 40 mg twice daily. Follow TTE Venous Doppler ultrasound with mild thrombus of L posterior tibial vein. Serial venous Doppler every week x 2 weeks to evaluate progression Avoid nephrotoxins Multimodal pain regimen Continue routine home medications Patient can be discharged tomorrow after repeat blood cx have been finalized. We can probably do Keflex if PCN allergy is not too severe.
[2025-02-16] MEDS: POTASSIUM CL SA 10 MEQ TAB PO ONE (09:28)
[2025-02-16] MEDS: METHYLPREDNISOLONE 40 MG INJ IV ONE (09:29)
[2025-02-16 09:31] VITALS: O2SAT 95
[2025-02-17 06:26] LABS: Anion Gap 8.4 mEq/L (5.0-15.0); BUN Blood Urea Nitrogen 44.0 mg/dL (7-18); Glucose Level 113.0 mg/dL (74-106)
[2025-02-17 06:27] LABS: Potassium 4.4 mEq/L (3.5-5.1)
--- NOTE | 2025-02-17 11:27 | P.DS ---
Admission Date: 02/14/25 Discharge Date: 02/17/25 Disposition: ROUTINE DISCHARGE Discharge Condition: GOOD Reason for Admission: NSTEMI Hospital Course: Patient is a 74-year-old male with known history of morbid obesity, gout arthritis. He presented to the hospital for evaluation of fever, chills and cough. Workup in the ER revealed right lower extremity cellulitis. His blood cultures yielded group B strep bacteremia. Patient is also being treated for acute on chronic CHF exacerbation. He has evidence of bilateral lower extremity edema. He did well on clindamycin and scheduled IV Lasix. His repeat blood culture was negative. He is medically clear for discharge. Of note, venous Doppler ultrasound with mild thrombus of L posterior tibial vein. He will need serial venous Doppler every week x 2 weeks to evaluate for clot progression. Vital Signs/Physical Exam: Temp Pulse Resp BP Pulse Ox 97.4 F 69 20 137/67 95 02/17/25 08:00 02/17/25 08:00 02/17/25 08:00 02/17/25 08:00 02/17/25 08:00 General: In no apparent distress, Cooperative, Obese HEENT: Atraumatic, Normocephalic Respiratory: Clear to auscultation bilaterally, Normal air movement Cardiovascular: No edema, Normal pulses, Regular rate/rhythm, Normal S1 S2 Neurological: Normal speech Laboratory Data at Discharge: WBC 9.10 thou/uL (4.3-10.9) 02/15/25 05:09 Hgb 13.6 g/dL (13.6-17.9) 02/15/25 05:09 Hct 40.4 % (39.6-49.0) 02/15/25 05:09 Plt Count 217 thou/uL (152-406) 02/15/25 05:09 PT 14.1 SECONDS (10-13.0) H 02/13/25 22:40 INR 1.26 02/13/25 22:40 APTT 27.7 SECONDS (27.2-37.4) 02/13/25 22:40 Sodium 133 mEq/L (136-145) L 02/17/25 05:29 Potassium 4.4 mEq/L (3.5-5.1) 02/17/25 05:29 BUN 44 mg/dL (7-18) H 02/17/25 05:29 Creatinine 1.50 mg/dL (0.70-1.30) H 02/17/25 05:29 Glucose 113 mg/dL (74-106) H 02/17/25 05:29 Uric Acid 6.3 mg/dL (3.5-7.2) 02/15/25 05:09 Phosphorus 3.4 mg/dL (2.5-4.9) 02/14/25 11:28 Magnesium 2.0 mg/dL (1.6-2.4) 02/14/25 11:28 Total Bilirubin 0.4 mg/dL (0.2-1.0) 02/15/25 05:09 AST 57 U/L (15-37) H 02/15/25 05:09 ALT 42 U/L (16-61) 02/15/25 05:09 Alkaline Phosphatase 58 U/L (45-117) 02/15/25 05:09 Home Medications: Allopurinol 100 mg PO DAILY 02/14/25 Tamsulosin [Flomax*] 0.4 mg PO DAILY 02/14/25 Tramadol HCl [Ultram] 50 mg PO Q12HR PRN 02/14/25 Aspirin [Aspirin EC 81 MG] 81 mg PO DAILY #30 tab 02/17/25 Atorvastatin Calcium [Lipitor] 40 mg PO BEDTIME #30 tab 02/17/25 Clindamycin HCl 450 mg PO TID #45 cap 02/17/25 Furosemide 40 mg PO DAILY #30 02/17/25 New Medications: Aspirin [Aspirin EC 81 MG] 81 mg PO DAILY #30 tab Clindamycin HCl 450 mg PO TID #45 cap Furosemide 40 mg PO DAILY #30 Atorvastatin Calcium [Lipitor] 40 mg PO BEDTIME #30 tab Diet: AHA Followup: Santhosh Soler MD [Primary Care Provider] - 1 Week (Please follow-up with the primary care physician for weekly venous Doppler ultrasound to evaluate for left posterior tibial vein thrombus. You will need to have at least 2 venous Doppler ultrasounds for surveillance.)
[2025-02-17 12:08] VITALS: BP 134/69; TEMP 97.5
== END 2025-02-17 14:30 | disposition home or self-care (01) | DRG 871 ==
LOC: ER 22:00 → ERHOLD 02-14 03:23 → 2ND 02-14 19:19
PROVIDERS: ADMIT Family Medicine; ATTEND Internal Medicine
DX: A40.1 Sepsis due to streptococcus, group B (principal); I21.A1 Myocardial infarction type 2; I50.33 Acute on chronic diastolic (congestive) heart failure; J18.9 Pneumonia, unspecified organism; L03.116 Cellulitis of left lower limb; E87.1 Hypo-osmolality and hyponatremia; Z68.42 Body mass index [BMI] 45.0-49.9, adult; I13.0 Hypertensive heart and chronic kidney disease with heart failure and stage 1 through stage 4 chronic kidney disease, or unspecified chronic kidney disease; I82.442 Acute embolism and thrombosis of left tibial vein; N18.2 Chronic kidney disease, stage 2 (mild); E66.01 Morbid (severe) obesity due to excess calories; L89.892 Pressure ulcer of other site, stage 2; E66.9 Obesity, unspecified; M10.9 Gout, unspecified; G62.9 Polyneuropathy, unspecified; N40.0 Benign prostatic hyperplasia without lower urinary tract symptoms; Z88.0 Allergy status to penicillin; Z56.0 Unemployment, unspecified; Z59.82 Transportation insecurity; Z59.71 Insufficient health insurance coverage; Z11.52 Encounter for screening for COVID-19; Z79.899 Other long term (current) drug therapy
CPT/HCPCS: 36415; 71045; 71275; 80048; 80053; 81001; 82550; 82947; 83605; 83735; 83880; 84100; 84484; 84550; 85025; 85610; 85730; 87040; 87077; 87186; 87205; 87428; 93005; 93306; 93970; 94760; 96361; 96374; 96375; 99285; J0696; J1650; J1938; J2270; J2405; J2919; J7030; Q9967

== ENCOUNTER 2025-03-01 09:53 | Emergency (ER) | payer OTHER ==
[2025-03-01 10:25] LABS: Absolute Lymphocytes (CBC) 1.0 K/uL (0.7-4.9); Hematocrit 40.1 % (39.6-49.0); Hemoglobin 13.2 g/dL (13.6-17.9); MCH 28.7 pg (27.0-35.0); MCHC 32.9 g/dL (32.0-36.0); MCV 87.3 fL (80-100); MPV 8.8 fL (7.6-11.3); Nucleated RBC Absolute Count 0.0 (0-0); Nucleated Red Blood Cells % 0.0 % (0-0); RBC Red Blood Cell Count 4.59 M/uL (4.33-5.43); White Blood Count 12.70 thou/uL (4.3-10.9)
[2025-03-01 10:43] LABS: ALT/SGPT 27.0 U/L (16-61); AST/SGOT 25.0 U/L (15-37); Albumin 3.4 g/dL (3.4-5.0); Albumin/Globulin Ratio 0.8 (1.1-1.8); Alkaline Phosphatase 63.0 U/L (45-117); Anion Gap 10.1 mEq/L (5.0-15.0); BUN Blood Urea Nitrogen 28.0 mg/dL (7-18); Globulin 4.3 g/dL (2.3-3.5); Glucose Level 108.0 mg/dL (74-106); Potassium 4.1 mEq/L (3.5-5.1)
--- NOTE | 2025-03-01 12:08 | RAD REPORT ---
EXAMINATION: US LEFT LOWER EXTREMITY VENOUS DOPPLER CLINICAL INDICATION: SWELLING TECHNIQUE: Complete bilateral duplex sonography of the LEFT lower extremity veins was performed. The examination included compression for vein patency, color Doppler imaging and flow augmentation in response to distal compression of the distal external iliac, common femoral, femoral, popliteal, tibi al, and great and small saphenous veins. COMPARISON: 02/15/2025 FINDINGS: Duplex sonography testing of the veins of the LEFT lower extremity was performed. Color flow imaging shows all veins to be compressible with [id number] color filling. Pulsatile and phasic flow is present within all lower extremity deep and superficial veins examined. IMPRESSION: There is no deep vein or superficial vein thrombosis. 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
--- NOTE | 2025-03-01 12:29 | ER ---
Nurse's Notes [facility] Name: Kevin Salgado Age: 74 yrs Sex: Male : 1950 Arrival Date: 03/01/2025 Time: 09:53 Bed 6 Private MD: Diagnosis: Cellulitis of left lower limb Presentation: 03/01 10:11 Chief complaint: Patient states: Bilateral leg swelling, redness, pain/sensitive to jp5 touch that started yesterday. Pt has chronic hx of this on and off for 10 years. Coronavirus screen: Client denies travel out of the [place] in the last 14 days. At this time, the client does not indicate any symptoms associated with coronavirus-19. Ebola Screen: No symptoms or risks identified at this time. Initial Sepsis Screen: Does the patient meet any 2 criteria? No. Patient's initial sepsis screen is negative. Does the patient have a suspected source of infection? No. Patient's initial sepsis screen is negative. Risk Assessment: Do you want to hurt yourself or someone else? Patient reports no desire to harm self or others. Onset of symptoms was February 28, 2025. 10:11 Method Of Arrival: Ambulatory 5 10:11 Acuity: TERRA 3 jp5 Triage Assessment: 10:15 General: Appears in no apparent distress. Behavior is calm, cooperative. Pain: 5 Complains of pain in right leg and left leg Pain currently is 7 out of 10 on a pain scale. Quality of pain is described as squeezing. Historical: - Allergies: 10:14 PENICILLINS; jp5 - PMHx: 10:14 neuropathy; right foot drop; jp5 - Immunization history:: Adult Immunizations up to date. - Infectious Disease History:: Denies. - Social history:: Smoking status: Patient denies any tobacco usage or history of. Patient/guardian denies using alcohol, street drugs. Screenin:15 [facility] ED Fall Risk Assessment (Adult) History of falling in the last 3 months, 5 including since admission No falls in past 3 months (0 pts) Confusion or Disorientation No (0 pts) Intoxicated or Sedated No (0 pts) Impaired Gait No (0 pts) Mobility Assist Device Used Yes (1 pt) Altered Elimination No (0 pt) Score/Fall Risk Level 0 - 2 = Low Risk Oriented to surroundings, Maintained a safe environment, Educated pt \T\ family on fall prevention, incl call for assistance when getting out of bed, Assessed \T\ reinforced patient's understanding of fall precautions, Provided non-skid footwear, Hourly rounding (assess needs \T\ fall precautionary measures) done, Used ambulatory aids as needed (educated on \T\ assisted with). Abuse screen: Denies threats or abuse. Denies injuries from another. Nutritional screening: No deficits noted. Tuberculosis screening: No symptoms or risk factors identified. Assessment: 10:16 Neuro: No deficits noted. Cardiovascular: No deficits noted. Respiratory: No deficits jp5 noted. 12:00 Reassessment: Patient appears in no apparent distress at this time. Patient and/or jp5 family updated on plan of care and expected duration. Pain level reassessed. Patient is alert, oriented x 3, equal unlabored respirations, skin warm/dry/pink. Vital Signs: 10:11 BP 119 / 69; Pulse 89; Resp 20; Temp 98.5(O); Pulse Ox 95% on R/A; Weight 137.89 kg; jp5 Height 6 ft. 0 in. ; Pain 7/10; 12:00 BP 118 / 62; Pulse 69; Resp 18; Pulse Ox 96% on R/A; jp5 10:11 Body Mass Index 41.23 (137.89 kg, 182.88 cm) jp5 10:11 Pain Scale: Adult 5 ED Course: 09:57 Patient arrived in ED. al6 09:57 Derik Douglass, COOPER is PHCP. cr8 09:57 Rajinder Burns DO is Attending Physician. cr8 10:05 Brandy Roy, RN is Primary Nurse. jp5 10:13 Triage completed. jp5 10:14 Arm band placed on right wrist. jp5 10:16 Patient has correct armband on for positive identification. Bed in low position. Call 5 light in reach. Side rails up X 1. Provided Education on: call light use. 10:16 Pulse ox on. NIBP on. jp5 10:16 No provider procedures requiring assistance completed. jp5 10:19 CBC with Diff Sent. jp5 10:19 CMP Sent. jp5 10:20 Initial lab(s) drawn, by me, sent to lab. Inserted saline lock: 20 gauge in right aa5 antecubital area, using aseptic technique. Blood collected. Flushed with 10 mL NS. 11:50 US Extremity Venous Unilateral Ltd In Process Unspecified. EDMS 12:35 IV discontinued, intact, bleeding controlled, No redness/swelling at site. Pressure jp5 dressing applied. Administered Medications: 12:34 Drug: Clindamycin PO 300 mg PO once Route: PO; jp5 Medication: 10:15 VIS not applicable for this client. jp5 Outcome: 12:29 Discharge ordered by MD. de la o 12:35 Discharged to home ambulatory, jp5 12:35 Condition: stable 12:35 Discharge instructions given to patient, Instructed on discharge instructions, follow up and referral plans. medication usage, Demonstrated understanding of instructions, follow-up care, medications, Prescriptions given X 2, 12:43 Patient left the ED. jp5 Signatures: Dispatcher [employer] EDMS Roxanne Mckoy RN RN aa5 Brandy Roy RN RN jp5 Leslie Moore6 Derik Douglass NP LABOR SERVICE REPRESENTATIVE cr8
--- NOTE | 2025-03-01 12:30 | EDPHYS ---
Physician Documentation [facility] Name: Kevin Salgado Age: 74 yrs Sex: Male : 1950 Arrival Date: 03/01/2025 Time: 09:53 Bed 6 Private MD: ED Physician Rajinder Burns HPI: 03/01 12:31 This 74 yrs old Male presents to ER via Ambulatory with complaints of Leg Swelling - cr8 and pain. 11:00 Patient is a 74-year-old male with a history of hypertension, chronic leg edema, cr8 neuropathy that comes into the emergency room complaining of left leg swelling and pain. Patient states he is not more swollen than when he was in the hospital 2 weeks ago. Reports that the left lower leg feels tight. Reports the pain is more sensitive now. He denies any chest pain dyspnea fever rigors or chills. Patient was on clindamycin and finished the dosage. States it was better but his came back over the last several days.. Historical: - Allergies: 10:14 PENICILLINS; jp5 - PMHx: 10:14 neuropathy; right foot drop; jp5 - Immunization history:: Adult Immunizations up to date. - Infectious Disease History:: Denies. - Social history:: Smoking status: Patient denies any tobacco usage or history of. Patient/guardian denies using alcohol, street drugs. ROS: 11:00 Constitutional: as per HPI cr8 Exam: 12:21 Constitutional: This is a well developed, well nourished patient who is awake, alert, cr8 and in no acute distress. Cardiovascular: Regular rate and rhythm with a normal S1 and S2. No gallops, murmurs, or rubs. Respiratory: Lungs have equal breath sounds bilaterally, clear to auscultation. No rales, rhonchi or wheezes noted. No increased work of breathing. Skin: Warm, dry with normal turgor. Normal color with no rashes, no lesions. There are some warmth and erythema to the posterior left calf. There is chronic skin changes bilateral lower extremities which is likely stasis dermatitis. No evidence of induration fluctuance on examination. Distal circulation is intact, good cap refill and pulses bilaterally. MS/ Extremity: Pulses equal, no cyanosis. Neurovascular intact. Full, normal range of motion. Neuro: Awake and alert, GCS 15, oriented to person, place, time, and situation. Cranial nerves II-XII grossly intact. Motor strength 5/5 in all extremities. Sensory grossly intact. Vital Signs: 10:11 BP 119 / 69; Pulse 89; Resp 20; Temp 98.5(O); Pulse Ox 95% on R/A; Weight 137.89 kg; jp5 Height 6 ft. 0 in. ; Pain 7/10; 12:00 BP 118 / 62; Pulse 69; Resp 18; Pulse Ox 96% on R/A; jp5 10:11 Body Mass Index 41.23 (137.89 kg, 182.88 cm) jp5 10:11 Pain Scale: Adult jp5 MDM: 10:00 Medical Screening Exam initiated cr8 12:21 Data reviewed: vital signs, nurses notes, old medical records, lab test result(s), cr8 radiologic studies. Consideration of Admission/Observation Patient was admitted/placed on observation. Counseling: I had a detailed discussion with the patient and/or guardian regarding the historical points, exam findings, and any diagnostic results supporting the discharge/admit diagnosis, lab results, radiology results, the need for outpatient follow up, to return to the emergency department if symptoms worsen or persist or if there are any questions or concerns that arise at home. ED course: Patient came into the emergency room for left lower extremity edema and pain. This patient presents with initial presentation of local erythema, warmth, swelling concerning for cellulitis. Sensitivity/pain to light touch around the erythematous area. No lymphangitic spread visible and no fluid pockets or fluctuance concerning for abscess noted. I reviewed the patient's previous admission and he had a Doppler report that indicated possible tibial thrombus in the left lower extremity. Went ahead and repeat ordered Doppler to evaluate for extension of the DVT. The Doppler was negative for DVT. No immune compromise, bullae, pain out of proportion, or rapid progression concerning for necrotizing fasciitis. Patient to be discharged home with keflex and clindamycin with follow up with their PMD. Did consider possible sepsis but patient is well-appearing. Blood pressure heart rate are stable. Did offer admission for further treatment but he preferred to go home. Since there is no emergent condition we will go ahead and prescribe cephalexin and clindamycin. Advised I need to follow-up with his PCP in 3 to 5 days for reevaluation explained to them that if his conditions worsen he needs return to the emergency room.. 03/01 10:12 Order name: CMP; Complete Time: 10:44 cr8 03/01 10:12 Order name: CBC with Diff; Complete Time: 10:35 cr8 03/01 10:13 Order name: US Extremity Venous Unilateral Ltd; Complete Time: 12:13 cr8 Administered Medications: 12:34 Drug: Clindamycin PO 300 mg PO once Route: PO; jp5 Disposition: 20:18 I was immediately available on-site in the Emergency Department for consultation in the ms3 care of the patient. Disposition Summary: 03/01/25 12:29 Discharge Ordered Notes: Location: Home cr8 Condition: Stable cr8 Diagnosis - Cellulitis of left lower limb cr8 Followup: cr8 - With: Emergency Department - When: - Reason: Fever > 102 F, Trouble breathing, Worsening of condition, Continuance of care Followup: cr8 - With: Private Physician - When: 2 - 3 days - Reason: Recheck today's complaints, Continuance of care, Re-evaluation by your physician Discharge Instructions: - Discharge Summary Sheet cr8 - Cellulitis, Adult cr8 Forms: - Medication Reconciliation Form cr8 - Antibiotic Education cr8 - Prescription Opioid Use cr8 - Patient Portal Instructions cr8 - Leadership Thank You Letter cr8 Prescriptions: - Cephalexin 500 mg Oral capsule - take 1 capsule ORAL route every 8 hours for 10 days; 30 capsule; Refills: 0, cr8 Product Selection Permitted - Clindamycin HCl 300 mg Oral Capsule - take 1 capsule ORAL route every 6 hours for 10 days; 40 capsule; Refills: 0, cr8 Product Selection Permitted Signatures: Dispatcher [employer] EDDE Rajinder Burns DO DO ms3 Brandy Roy RN RN jp5 Derik Douglass NP BUSINESS ANALYST cr8 Corrections: (The following items were deleted from the chart) 11:18 11:00 Patient is a 74-year-old male with a history of hypertension. cr8 cr8 12:22 11:00 Patient is a 74-year-old male with a history of hypertension comes into the 8 emergency room complaining of left leg swelling and pain. Patient states he is not more swollen than when he was in the hospital 2 weeks ago. Reports the pain is more sensitive now. He denies any chest pain dyspnea fever rigors or chills.. cr8 12:31 11:00 Patient is a 74-year-old male with a history of hypertension, chronic leg edema, cr8 neuropathy that comes into the emergency room complaining of left leg swelling and pain. Patient states he is not more swollen than when he was in the hospital 2 weeks ago. Reports the pain is more sensitive now. He denies any chest pain dyspnea fever rigors or chills.. cr8
[2025-03-01 12:58] VITALS: TEMP 98.5
[2025-03-01 13:00] VITALS: BP 118/62; O2SAT 96
== END 2025-03-01 12:43 | disposition home or self-care (01) ==
LOC: ER 09:53
DX: L03.116 Cellulitis of left lower limb (principal)
CPT/HCPCS: 36415; 80053; 85025; 93971; 99284